=== PATIENT | female | born 1940 | race Caucasian/White ===

== ENCOUNTER 2021-02-07 15:49 | Observation (INO) ==
[2021-02-07] MEDS ORDERED: ONDANSETRON 4 MG/2 ML VIAL IV STA (17:10)
[2021-02-07] MEDS ORDERED: SODIUM CHLORIDE 0.9% 1,000 ML IV STA (17:10)
[2021-02-07 17:18] LABS: Basophils % 0.4 % (0.0-0.8); Eosinophils # 0.6 10*3/uL (0.0-0.87); Eosinophils % 8.2 % (0.00-10.9); Hematocrit 42.1 VOL% (35.7-47.0); Hemoglobin 13.8 GM/DL (12.0-16.0); Immature Granulocytes % 1.6 %; Immature Granulocytes Absolute 0.11 #; Lymphocytes # 1.7 10*3/uL (1.4-4.0); Lymphocytes % 25.1 % (21.3-54.2); Mean Corpuscular HGB Conc 32.8 GM/DL (32-36); Mean Corpuscular Volume 91.3 FL (87-102); Mean Platelet Volume 9.8 FL (9.6-12.0); Monocytes % 7.9 % (1.7-12.7); Neutrophils % 56.8 % (38.7-73.9); Platelet Count 258 T/CUMM (130-400); Red Blood Count 4.61 MC/CUMM (3.8-5.5); Red Cell Distribution Width 13.6 % (9.3-17.3); White Blood Count 6.8 T/CUMM (4-12)
[2021-02-07 17:30] LABS: Albumin 3.9 G/DL (3.4-5.0); Bilirubin,Total 0.5 MG/DL (0.20-1.00); Calcium 8.7 MG/DL (8.5-10.1); Osmolality,Calculated 272.8 MOS/KG (273-304); Potassium 3.4 MMOL/L (3.5-5.1); Total Protein 7.4 G/DL (6.4-8.2)
[2021-02-07] MEDS ORDERED: DEXTROSE 50% 25 GM/50 ML VIAL IV PRN (18:41)
[2021-02-07] MEDS ORDERED: GLUCAGON 1 MG VIAL IM PRN (18:41)
[2021-02-07] MEDS ORDERED: ONDANSETRON 4 MG/2 ML VIAL IV PRN (18:48)
[2021-02-07] MEDS ORDERED: hydrALAZINE 20 MG/1 ML VIAL ONE (19:03)
[2021-02-07] MEDS ORDERED: hydrALAZINE 20 MG/1 ML VIAL IV STA (19:16)
[2021-02-07] MEDS ORDERED: ACETAMINOPHEN 325 MG TABLET PO PRN (19:29)
[2021-02-07] MEDS ORDERED: hydrALAZINE 20 MG/1 ML VIAL IV PRN (19:32)
[2021-02-07] MEDS ORDERED: KETOROLAC 30 MG/1 ML VIAL IV STA (19:33)
[2021-02-07] MEDS ORDERED: PROMETHAZINE 25 MG/1 ML VIAL IM PRN (19:37)
[2021-02-07] MEDS ORDERED: KETOROLAC 30 MG/1 ML VIAL IV PRN (19:38)
[2021-02-07] MEDS: SODIUM CHLORIDE 0.9% 1,000 ML IV SCH (20:25)
[2021-02-07] MEDS: ENOXAPARIN 40 MG/0.4 ML SYRINGE SUBCUT SCH (20:46)
[2021-02-07 22:15] LABS: Bacteria,Urine Occasional /HPF (Few); Bilirubin,Urine Negative (Negative); Blood, Urine Negative (Negative); Glucose,Urine (UA) Negative (Negative); Ketones,Urine Negative (Negative); Nitrite,Urine Negative (Negative); Protein,Urine Negative; RBC,Urine 3 /HPF (0-4); Squamous Epithelial Cell,Urine Occasional /HPF (0-10); Urine Appearance Slightly Hazy (Clear); Urine Color Yellow (Yellow); Urine Specific Gravity 1.009 (1.001-1.035); Urine Urobilinogen < 2.0 EU/DL (0.2-1.0)
[2021-02-08 05:02] LABS: Basophils % 0.5 % (0.0-0.8); Eosinophils # 0.2 10*3/uL (0.0-0.87); Eosinophils % 2.8 % (0.00-10.9); Hematocrit 38.6 VOL% (35.7-47.0); Hemoglobin 12.4 GM/DL (12.0-16.0); Immature Granulocytes % 2.3 %; Immature Granulocytes Absolute 0.13 #; Lymphocytes # 1.4 10*3/uL (1.4-4.0); Lymphocytes % 24.8 % (21.3-54.2); Mean Corpuscular HGB Conc 32.1 GM/DL (32-36); Mean Corpuscular Volume 93.9 FL (87-102); Monocytes % 11.3 % (1.7-12.7); Neutrophils % 58.3 % (38.7-73.9); Platelet Count 222 T/CUMM (130-400); Red Blood Count 4.11 MC/CUMM (3.8-5.5); Red Cell Distribution Width 13.8 % (9.3-17.3); White Blood Count 5.8 T/CUMM (4-12)
[2021-02-08 05:26] LABS: Albumin 3.1 G/DL (3.4-5.0); Osmolality,Calculated 276.5 MOS/KG (273-304); Potassium 3.9 MMOL/L (3.5-5.1); Total Protein 5.9 G/DL (6.4-8.2)
[2021-02-08] MEDS: INSULIN REGULAR 100 UNIT/ML SUBCUT SCH ×5 (06:25→21:08)
[2021-02-08 07:39] LABS: Band Neutrophils 3 % (0-10); Eosinophils 5 % (0-10); Lymphocytes 24 % (20-55); Microcytosis Slight; Segmented Neutrophils 55 % (50-85); Total Cells Counted 100
[2021-02-08 07:40] LABS: Atypical Lymphocytes Few; Platelet Estimate Normal
[2021-02-08] MEDS: PANTOPRAZOLE 40 MG TABLET PO SCH (08:44)
[2021-02-08] MEDS: LACTATED RINGERS 1,000 ML IV SCH ×2 (08:45→21:11)
[2021-02-08] MEDS: SODIUM CHLORIDE 0.9% 1,000 ML IV SCH (09:18)
[2021-02-08] MEDS: amLODIPine 5 MG TABLET PO SCH (12:14)
[2021-02-08] MEDS: FLUTICASONE 50 MCG NASAL SPRAY 16 GM BOTTLE BOTH NARES SCH ×2 (12:14→21:09)
[2021-02-08] MEDS: ENOXAPARIN 40 MG/0.4 ML SYRINGE SUBCUT SCH (18:05)
[2021-02-08] MEDS: FLUTICASONE/SALMETEROL 250-50 DISKUS 14 DOSE INH SCH (21:08)
[2021-02-08] MEDS: GABAPENTIN 600 MG TABLET PO SCH (21:09)
[2021-02-09 08:15] LABS: Calcium 8.3 MG/DL (8.5-10.1); Osmolality,Calculated 281.1 MOS/KG (273-304); Potassium 3.7 MMOL/L (3.5-5.1)
[2021-02-09] MEDS ORDERED: RALOXIFENE 60 MG TABLET PO SCH (09:00)
[2021-02-09] MEDS ORDERED: CELECOXIB 200 MG CAPSULE PO SCH (09:00)
[2021-02-09] MEDS ORDERED: CYANOCOBALAMIN 500 MCG TABLET PO SCH (09:00)
[2021-02-09] MEDS ORDERED: ASPIRIN EC 81 MG TABLET PO SCH (09:00)
[2021-02-09] MEDS ORDERED: LOSARTAN 50 MG TABLET PO SCH (09:00)
[2021-02-09] MEDS: amLODIPine 5 MG TABLET PO SCH (10:49)
[2021-02-09] MEDS: GABAPENTIN 600 MG TABLET PO SCH (10:50)
[2021-02-09] MEDS: PANTOPRAZOLE 40 MG TABLET PO SCH (10:50)
[2021-02-09] MEDS: FLUTICASONE/SALMETEROL 250-50 DISKUS 14 DOSE INH SCH (10:52)
[2021-02-09] MEDS: FLUTICASONE 50 MCG NASAL SPRAY 16 GM BOTTLE BOTH NARES SCH (10:52)
[2021-02-09] MEDS: INSULIN REGULAR 100 UNIT/ML SUBCUT SCH ×2 (10:53→12:19)
[2021-02-09 12:19] VITALS: BP 142/79
[2021-02-09] MEDS: LACTATED RINGERS 1,000 ML IV SCH (12:19)
== END 2021-02-09 14:30 | disposition home or self-care (01) ==
LOC: N.ED 15:49 → N.EDINP 15:49 → SUATTDRO 18:41 → N.TELES 20:28
PROVIDERS: ADMIT Internal Medicine; ATTEND Internal Medicine

== ENCOUNTER 2021-11-07 12:39 | Inpatient (IN) ==
[2021-11-07] MEDS ORDERED: SODIUM CHLORIDE 0.9% 1,000 ML IV STA (13:27)
[2021-11-07 15:00] LABS: Basophils % 0.2 % (0.0-0.8); Hematocrit 44.4 VOL% (35.7-47.0); Hemoglobin 14.9 GM/DL (12.0-16.0); Immature Granulocytes % 0.8 %; Immature Granulocytes Absolute 0.09 #; Lymphocytes # 1.2 10*3/uL (1.4-4.0); Lymphocytes % 10.2 % (21.3-54.2); Mean Corpuscular HGB Conc 33.6 GM/DL (32-36); Mean Corpuscular Volume 90.6 FL (87-102); Mean Platelet Volume 9.5 FL (9.6-12.0); Monocytes # 0.9 10*3/uL (0.11-0.8); Monocytes % 7.9 % (1.7-12.7); Neutrophils % 80.9 % (38.7-73.9); Platelet Count 238 T/CUMM (130-400); Red Cell Distribution Width 13.2 % (9.3-17.3); White Blood Count 11.2 T/CUMM (4-12)
[2021-11-07 15:22] LABS: Albumin 3.6 G/DL (3.4-5.0); Bilirubin,Total 0.9 MG/DL (0.20-1.00); Calcium 9.1 MG/DL (8.5-10.1); Osmolality,Calculated 273.1 MOS/KG (273-304); Potassium 3.7 MMOL/L (3.5-5.1); Total Protein 7.9 G/DL (6.4-8.2)
[2021-11-07] MEDS ORDERED: cefTRIAXone 1,000 MG in SODIUM CHLORIDE 0.9% 100 ML IV STA (16:04)
[2021-11-07] MEDS ORDERED: AZITHROMYCIN INJ 500 MG in SODIUM CHLORIDE 0.9% 250 ML IV STA (16:05)
[2021-11-07] MEDS ORDERED: ONDANSETRON 4 MG/2 ML VIAL IV PRN (16:57)
[2021-11-07] MEDS ORDERED: guaiFENesin/DM ER 600-30 MG TABLET PO PRN (16:57)
[2021-11-07] MEDS ORDERED: GLUCAGON 1 MG VIAL IM PRN ×2 (16:57→17:15)
[2021-11-07] MEDS ORDERED: DEXTROSE 10% 250 ML BAG IV PRN ×2 (17:04→17:34)
[2021-11-07] MEDS ORDERED: traMADol 50 MG TABLET PO PRN (17:08)
[2021-11-07] MEDS ORDERED: hydrALAZINE 20 MG/1 ML VIAL IV PRN (17:14)
[2021-11-07] MEDS: SODIUM CHLORIDE 0.9% 1,000 ML IV SCH (17:42)
[2021-11-07] MEDS: ENOXAPARIN 30 MG/0.3 ML SYRINGE SUBCUT SCH (17:42)
[2021-11-07 17:44] LABS: Bacteria,Urine Occasional /HPF (Few); Glucose,Urine (UA) Negative (Negative); Ketones,Urine Negative (Negative); Mucus,Urine Occasional /LPF (Occasional); Nitrite,Urine Negative (Negative); Protein,Urine Negative (Negative); Squamous Epithelial Cell,Urine Occasional /HPF (0-10); Urine Appearance Clear (Clear); Urine Color Yellow (Yellow); Urine Specific Gravity 1.015 (1.001-1.035)
[2021-11-07 17:45] LABS: Bilirubin,Urine Negative (Negative); Blood, Urine Moderate mg/dL (Negative)
[2021-11-07] MEDS ORDERED: ERGOCALCIFEROL 50,000 UNIT CAPSULE PO SCH (18:30)
[2021-11-07] MEDS: ALBUTEROL/IPRATROPIUM 3 ML NEB RESP TX SCH (19:45)
[2021-11-07] MEDS: FLUTICASONE 50 MCG NASAL SPRAY 16 GM BOTTLE BOTH NARES SCH (23:08)
[2021-11-07] MEDS: INSULIN LISPRO 100 UNIT/ML SUBCUT SCH (23:08)
[2021-11-08] MEDS: ALBUTEROL/IPRATROPIUM 3 ML NEB RESP TX SCH ×4 (00:15→19:55)
[2021-11-08 06:39] LABS: Basophils % 0.1 % (0.0-0.8); Eosinophils % 0.1 % (0.00-10.9); Hematocrit 40.9 VOL% (35.7-47.0); Hemoglobin 13.6 GM/DL (12.0-16.0); Immature Granulocytes % 0.9 %; Lymphocytes # 1.2 10*3/uL (1.4-4.0); Lymphocytes % 10.5 % (21.3-54.2); Mean Corpuscular HGB Conc 33.3 GM/DL (32-36); Mean Corpuscular Volume 90.9 FL (87-102); Mean Platelet Volume 9.7 FL (9.6-12.0); Monocytes # 1.2 10*3/uL (0.11-0.8); Monocytes % 10.7 % (1.7-12.7); Neutrophils % 77.7 % (38.7-73.9); Platelet Count 241 T/CUMM (130-400); Red Cell Distribution Width 13.2 % (9.3-17.3); White Blood Count 11.1 T/CUMM (4-12)
[2021-11-08 06:58] LABS: Albumin 2.9 G/DL (3.4-5.0); Bilirubin,Total 0.7 MG/DL (0.20-1.00); Calcium 8.8 MG/DL (8.5-10.1); Osmolality,Calculated 269.4 MOS/KG (273-304); Potassium 3.3 MMOL/L (3.5-5.1); Total Protein 6.5 G/DL (6.4-8.2)
[2021-11-08] MEDS: TOLTERODINE LA 2 MG CAPSULE PO SCH (08:21)
[2021-11-08] MEDS: PANTOPRAZOLE 40 MG TABLET PO SCH (08:21)
[2021-11-08] MEDS: RALOXIFENE 60 MG TABLET PO SCH (08:21)
[2021-11-08] MEDS: CELECOXIB 200 MG CAPSULE PO SCH ×2 (08:21→16:13)
[2021-11-08] MEDS: INSULIN LISPRO 100 UNIT/ML SUBCUT SCH ×4 (08:21→21:27)
[2021-11-08] MEDS: MULTIVITAMIN (CENTRUM) TABLET PO SCH (08:22)
[2021-11-08] MEDS: ASPIRIN EC 81 MG TABLET PO SCH (08:22)
[2021-11-08] MEDS: POTASSIUM CHLORIDE 20 MEQ TABLET PO PRN ×2 (08:23→16:14)
[2021-11-08] MEDS: FLUTICASONE 50 MCG NASAL SPRAY 16 GM BOTTLE BOTH NARES SCH ×2 (08:25→21:25)
[2021-11-08] MEDS: AZITHROMYCIN INJ 500 MG in SODIUM CHLORIDE 0.9% 250 ML IV SCH (08:29)
[2021-11-08] MEDS: cefTRIAXone 1,000 MG in SODIUM CHLORIDE 0.9% 100 ML IV SCH (10:09)
[2021-11-08] MEDS: SODIUM CHLORIDE 0.9% 1,000 ML IV SCH (21:25)
[2021-11-08] MEDS: ENOXAPARIN 30 MG/0.3 ML SYRINGE SUBCUT SCH (21:27)
[2021-11-09] MEDS: ALBUTEROL/IPRATROPIUM 3 ML NEB RESP TX SCH ×5 (00:05→23:55)
[2021-11-09] MEDS: INSULIN LISPRO 100 UNIT/ML SUBCUT SCH ×4 (08:49→22:20)
[2021-11-09] MEDS: ASPIRIN EC 81 MG TABLET PO SCH (09:33)
[2021-11-09] MEDS: MULTIVITAMIN (CENTRUM) TABLET PO SCH (09:33)
[2021-11-09] MEDS: CELECOXIB 200 MG CAPSULE PO SCH ×2 (09:33→16:33)
[2021-11-09] MEDS: TOLTERODINE LA 2 MG CAPSULE PO SCH (09:34)
[2021-11-09] MEDS: AZITHROMYCIN INJ 500 MG in SODIUM CHLORIDE 0.9% 250 ML IV SCH (09:34)
[2021-11-09] MEDS: PANTOPRAZOLE 40 MG TABLET PO SCH (09:34)
[2021-11-09] MEDS: RALOXIFENE 60 MG TABLET PO SCH (09:34)
[2021-11-09] MEDS: FLUTICASONE 50 MCG NASAL SPRAY 16 GM BOTTLE BOTH NARES SCH ×2 (09:36→21:23)
[2021-11-09] MEDS: cefTRIAXone 1,000 MG in SODIUM CHLORIDE 0.9% 100 ML IV SCH (11:22)
[2021-11-09] MEDS: ENOXAPARIN 30 MG/0.3 ML SYRINGE SUBCUT SCH (21:26)
[2021-11-10] MEDS: ALBUTEROL/IPRATROPIUM 3 ML NEB RESP TX SCH ×3 (07:21→19:28)
[2021-11-10] MEDS: INSULIN LISPRO 100 UNIT/ML SUBCUT SCH ×3 (07:54→17:29)
[2021-11-10] MEDS: TOLTERODINE LA 2 MG CAPSULE PO SCH (08:43)
[2021-11-10] MEDS: PANTOPRAZOLE 40 MG TABLET PO SCH (08:43)
[2021-11-10] MEDS: CELECOXIB 200 MG CAPSULE PO SCH ×2 (08:43→17:29)
[2021-11-10] MEDS: MULTIVITAMIN (CENTRUM) TABLET PO SCH (08:43)
[2021-11-10] MEDS: RALOXIFENE 60 MG TABLET PO SCH (08:43)
[2021-11-10] MEDS: ASPIRIN EC 81 MG TABLET PO SCH (08:43)
[2021-11-10] MEDS: AZITHROMYCIN INJ 500 MG in SODIUM CHLORIDE 0.9% 250 ML IV SCH (08:43)
[2021-11-10] MEDS: FLUTICASONE 50 MCG NASAL SPRAY 16 GM BOTTLE BOTH NARES SCH ×2 (08:50→20:20)
[2021-11-10] MEDS: cefTRIAXone 1,000 MG in SODIUM CHLORIDE 0.9% 100 ML IV SCH (10:40)
[2021-11-10] MEDS: ENOXAPARIN 30 MG/0.3 ML SYRINGE SUBCUT SCH (20:20)
[2021-11-11] MEDS: INSULIN LISPRO 100 UNIT/ML SUBCUT SCH ×2 (00:18→07:32)
[2021-11-11] MEDS: ALBUTEROL/IPRATROPIUM 3 ML NEB RESP TX SCH ×2 (00:56→07:11)
[2021-11-11 04:19] LABS: Basophils # 0.1 10*3/uL (0.0-0.2); Basophils % 0.7 % (0.0-0.8); Eosinophils # 0.3 10*3/uL (0.0-0.87); Eosinophils % 5.1 % (0.00-10.9); Hematocrit 38.3 VOL% (35.7-47.0); Hemoglobin 12.7 GM/DL (12.0-16.0); Immature Granulocytes % 1.8 %; Immature Granulocytes Absolute 0.12 #; Lymphocytes # 1.4 10*3/uL (1.4-4.0); Lymphocytes % 20.9 % (21.3-54.2); Mean Corpuscular HGB Conc 33.2 GM/DL (32-36); Mean Corpuscular Volume 90.1 FL (87-102); Mean Platelet Volume 9.5 FL (9.6-12.0); Monocytes # 0.7 10*3/uL (0.11-0.8); Monocytes % 10.4 % (1.7-12.7); Neutrophils % 61.1 % (38.7-73.9); Platelet Count 294 T/CUMM (130-400); Red Blood Count 4.25 MC/CUMM (3.8-5.5); Red Cell Distribution Width 13.1 % (9.3-17.3); White Blood Count 6.7 T/CUMM (4-12)
[2021-11-11 04:41] LABS: Albumin 2.8 G/DL (3.4-5.0); Bilirubin,Total 0.5 MG/DL (0.20-1.00); Osmolality,Calculated 282.3 MOS/KG (273-304); Potassium 3.1 MMOL/L (3.5-5.1); Total Protein 6.4 G/DL (6.4-8.2)
[2021-11-11] MEDS ORDERED: POTASSIUM CHLORIDE 20 MEQ TABLET PO ONE (08:00)
[2021-11-11 08:29] VITALS: BP 124/93
[2021-11-11] MEDS: CELECOXIB 200 MG CAPSULE PO SCH (09:19)
[2021-11-11] MEDS: TOLTERODINE LA 2 MG CAPSULE PO SCH (09:20)
[2021-11-11] MEDS: PANTOPRAZOLE 40 MG TABLET PO SCH (09:20)
[2021-11-11] MEDS: MULTIVITAMIN (CENTRUM) TABLET PO SCH (09:20)
[2021-11-11] MEDS: ASPIRIN EC 81 MG TABLET PO SCH (09:20)
[2021-11-11] MEDS: RALOXIFENE 60 MG TABLET PO SCH (09:20)
[2021-11-11] MEDS: FLUTICASONE 50 MCG NASAL SPRAY 16 GM BOTTLE BOTH NARES SCH (09:23)
[2021-11-11] MEDS: AZITHROMYCIN INJ 500 MG in SODIUM CHLORIDE 0.9% 250 ML IV SCH (09:44)
[2021-11-11] MEDS ORDERED: POTASSIUM CHLORIDE 20 MEQ TABLET PO SCH (11:00)
[2021-11-11] MEDS: cefTRIAXone 1,000 MG in SODIUM CHLORIDE 0.9% 100 ML IV SCH (11:19)
== END 2021-11-11 11:18 | disposition home or self-care (01) | DRG 195 ==
LOC: N.EDINP 12:39 → N.ED 12:39 → N.5E 18:08 → SUATTDRO 11-08 09:17
PROVIDERS: ADMIT Internal Medicine Geriatric Medicine; ATTEND Family Medicine